=== PATIENT | male | born 1995 | race Caucasian/White ===

== ENCOUNTER 2018-04-07 16:02 | Emergency (ER) | payer OTHER ==
[2018-04-07] MEDS: DIPHTH/TET/ACEL PERTUSS (ADULT) 0.5 ML VIAL IM* (17:24)
== END 2018-04-07 17:41 | disposition home or self-care (01) ==
LOC: FTE 16:02
DX: S91.131A Puncture wound without foreign body of right great toe without damage to nail, initial encounter (principal); W45.0XXA Nail entering through skin, initial encounter; Y92.89 Other specified places as the place of occurrence of the external cause
CPT/HCPCS: 90471; 90715; 99283-25

== ENCOUNTER 2018-05-25 16:28 | Emergency (ER) | payer OTHER ==
[2018-05-25] MEDS ORDERED: KETOROLAC 15 MG INJ IV (17:47)
[2018-05-25] MEDS: SOD CHLORIDE 0.9% 1,000 ML IV (17:51)
[2018-05-25] MEDS ORDERED: DIPHENHYDRAMINE 50 MG INJ IV (18:00)
[2018-05-25] MEDS ORDERED: METOCLOPRAMIDE 10 MG INJ IV (18:00)
[2018-05-25 18:34] LABS: ADD MAN DIFF? NO
[2018-05-25 18:37] LABS: WHITE BLOOD COUNT 10.1 10^3/ul (4.8-10.8)
[2018-05-25 18:37] LABS: BASOPHIL # 0.1 10^3/ul (0.0-0.1); EOSINOPHILS # 0.4 10^3/ul (0.0-0.5); EOSINOPHILS % 3.6 % (0.0-7.0); HEMATOCRIT 47.6 % (42.0-52.0); HEMOGLOBIN 15.9 g/dl (14.0-18.0); LYMPHOCYTES # 3.5 10^3/ul (0.8-2.9); LYMPHOCYTES % 34.9 % (15.0-51.0); MEAN CORPUSCULAR HEMOGLOBIN 29.7 pg (29.0-33.0); MEAN CORPUSCULAR HGB CONC 33.4 g/dl (32.0-37.0); MEAN PLATELET VOLUME 9.3 fl (7.4-10.4); MONOCYTE # 0.9 10^3/ul (0.3-0.9); MONOCYTES % 9.2 % (0.0-11.0); NEUTROPHIL # 5.2 10^3/ul (1.6-7.5); NEUTROPHILS % 51.1 % (39.0-77.0); PLATELET COUNT 343 10^3/UL (140-415); RED BLOOD COUNT 5.35 10^6/ul (4.70-6.10); RED CELL DISTRIBUTION WIDTH 13.3 % (11.5-14.5)
[2018-05-25 18:54] LABS: ALANINE AMINOTRANSFERASE 36 IU/L (13-69); ALBUMIN 4.6 g/dl (3.3-4.9); ALBUMIN/GLOBULIN RATIO 1.15; ALKALINE PHOSPHATASE 58 IU/L (42-121); ANION GAP 16 (8-16); ASPARTATE AMINO TRANSFERASE 31 IU/L (15-46); BILIRUBIN,INDIRECT 0.2 mg/dl (0-1.1); BILIRUBIN,TOTAL 0.2 mg/dl (0.2-1.3); BLOOD UREA NITROGEN 19 mg/dl (7-20); CALCIUM 9.5 mg/dl (8.4-10.2); CARBON DIOXIDE 27 mmol/L (21-31); CHLORIDE 104 mmol/L (97-110); CREATININE 1.09 mg/dl (0.61-1.24); GLUCOSE 99 mg/dl (70-220); POTASSIUM 4.4 mmol/L (3.5-5.1); SODIUM 143 mmol/L (135-144); TOTAL PROTEIN 8.6 g/dl (6.1-8.1)
== END 2018-05-25 19:34 | disposition home or self-care (01) ==
LOC: FTE 16:28
DX: R51 Headache (principal)
CPT/HCPCS: 36415; 80053; 85025; 99284-25

== ENCOUNTER 2019-01-17 09:17 | Emergency (ER) | payer OTHER ==
[2019-01-17] MEDS: IBUPROFEN 800 MG TAB PO (10:31)
== END 2019-01-17 11:06 | disposition home or self-care (01) ==
LOC: FTE 09:17
DX: M25.561 Pain in right knee (principal); M25.562 Pain in left knee
CPT/HCPCS: 73562; 73562-50; 99284-25